=== PATIENT | male | born 1980 | race Caucasian/White ===

== ENCOUNTER 2023-08-05 12:54 | Outpatient (AMB) | payer MEDICAID, SELFPAY ==
[2023-08-05 13:09] VITALS: BP 140/76; PULSE 84; RESP 18; O2SAT 96; BMI 35.9
--- NOTE | 2023-08-05 13:09 | A.OFFVIS_ITS ---
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 Patient diagnosed with Xzmlirk-Pwmon-Uspue disease approximately 1.5 years ago. He reports that he has been suffering for chronic bilateral upper and lower extremity numbness, burning, pins and needles for greater than 20 years but despite numerous evaluations by a general practitioners he was not referred to specialist or diagnosed until 1.5 years ago. Patient reports he is currently taking gabapentin for his pain and finds this helps with his discomfort, mobility and overall function. He has recently started wearing braces to his lower extremities and utilizing crutches which have enabled him to be more ambulatory. Patient currently enrolled in physical therapy for his lower extremities and states is helping with his walking and overall function. He has been referred to a neurologist in [place] and has an appointment with them September 07. He is currently under care at [facility] for his feet, ankle, hands and wrist pain. He was referred to our office to discuss other options to treat his pain. He is not interested in opioid medications. Pain today is rated as a 5/10. He states the pain is constant, at times will be 10/10. He reports there is no particular time when the pain is at its worst. In terms of muscle damage conditions describes aching, shooting, tiring, exhausting, numb, throbbing, shocking, stabbing, sharp, hot, burning, spasming, tingling, pins and needles. Pain is negatively impacting his enjoyment of life, general activity, mood, normal work, recreational activities, relationships with people, sleep and walking. [facility] Medical History (Updated 08/05/23 @ 16:25 by Brittany Ambrose, DIRECTOR LOAN, PHERESIS SPECIALIST) Benign paroxysmal vertigo, right ear PTSD (post-traumatic stress disorder) Hypertension Nervous Review of Systems Const All systems reviewed & are unremarkable except as noted in HPI and below Physical Exam Vital Signs: Last Vital Signs Pulse 84 08/05/23 13:09 Resp 18 08/05/23 13:09 BP 140/76 H 08/05/23 13:09 Pulse Ox 96 08/05/23 13:09 Oxygen Delivery Method Room Air 08/05/23 13:09 BMI result Body Mass Index 35.9 General: awake, alert, oriented. Answers questions appropriately. Fully engaged in examination. Skin: warm, dry, intact HEENT: Normocephalic. Hearing intact. Cardiac: External chest normal in appearance. Respiratory: No cough, audible wheezing or stridor. Abdomen: without gross distension. Neurological: Oriented to person, place, time and situation. Thought process intact. Psychiatric: Appropriate mood and affect. Good judgment and insight. 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 Continue with physical therapy. Offered referral to occupational therapy but patient reports that he currently does not feel the need as he is able to manage activities of daily living that they would assist with. We discussed options for adjustments to gabapentin or changes from gabapentin to Lyrica. He reports gabapentin is currently working for him, he can discuss dose increase with his prescriber if pain worsens. He is not interested in making any changes to gabapentin at this time. Follow-up with neurology in [place] as planned next month. Discussed options for treatment including diagnostic interventional testing, steroid injections, peripheral nerve stimulation with Sprint, RFA and more permanent neuromodulation. Informational pamphlets provided. Discussed option for spinal cord stimulation trial with [employer] with lead placement at C2 to assist with neck, upper back and bilateral upper extremity pain. Patient advised that implantable devices require psychological evaluation and clearance. The risks of anesthesia in CMT discussed with patient, this would be further reviewed prior to scheduling any procedures. All questions and concerns have been answered and patient agrees with the plan. Patient will research, review literature and possibly wait to discuss with neurology at his appointment next month. If he decides to proceed with spinal cord stimulation trial he will call the office to schedule. Coding Level of Care Code New Pt Level 4 (19710) Diagnoses Polyneuropathy G62.9 Ywntxah-Gdoup-Vctxv disease G60.0
== END 2023-08-05 13:55 | disposition home or self-care (01) ==
PROVIDERS: Visit Provider Registered Nurse Emergency
DX: G62.9 Polyneuropathy, unspecified (principal); G60.0 Hereditary motor and sensory neuropathy
CPT/HCPCS: 99204

== ENCOUNTER → 2023-08-05 12:54 | Outpatient (BNVA) | payer MEDICAID, SELFPAY | PROVIDERS: Visit Provider Registered Nurse Emergency | DX: G60.0 Hereditary motor and sensory neuropathy (principal); H81.11 Benign paroxysmal vertigo, right ear; F43.10 Post-traumatic stress disorder, unspecified | CPT/HCPCS: 99212 ==